=== PATIENT | female | born 1980 | race Caucasian/White ===

== ENCOUNTER 2017-02-18 06:00 | Inpatient (IN) ==
[2017-02-18] MEDS ORDERED: METHYLERGONOVINE 0.2 MG/ML INJECTION IM PRN (06:11)
[2017-02-18] MEDS ORDERED: CARBOPROST 250 MCG/ML INJECTION IM PRN (06:11)
[2017-02-18] MEDS ORDERED: ACETAMINOPHEN 500 MG TABLET PO PRN ×2 (06:11→16:24)
[2017-02-18] MEDS ORDERED: MAG-AL + SIM ORAL LIQUID 30ml PO PRN ×2 (06:11→16:24)
[2017-02-18] MEDS ORDERED: LIDOCAINE 1% (10mg/ml) 2mL INJ PF SDV ID PRN (06:11)
[2017-02-18] MEDS ORDERED: CALCIUM CARBONATE Chewable 500mg TABLET PO PRN ×2 (06:11→16:24)
--- OUTSIDE RECORDS SUMMARY | 2017-02-18 06:15 | External Medical Summary | Continuity of Care Document ---
:1980 Author Organization [facility] Address [address] [place], [place] [id number] Phone Care Team Providers Name Role Phone Martina Cartagena MD Unavailable Unavailable Allergies, Adverse Reactions, Alerts Substance Reaction Severity Status No Known Drug Allergies Unknown Active Medications Medication Instructions Dosage Effective Dates Status Comments (start - stop) FLUTICASONE spray 1 spray by - Active PROPIONATE (unknown intranasal route strength) every day in each nostril EYE ALLERGY RELIEF - Active (unknown strength) (unknown daily - Active strength) Zyrtec 10 mg capsule - Active Tylenol Extra take 2 tablet by oral 1000 MG - Active Strength 500 mg route every 6 hours tablet as needed CRANBERRY (unknown - Active strength) Fiber Choice - Active (inulin-sorbitol) 1.5 gram chewable tablet Problems Condition Effective Dates (start - stop) Clinical Status Encntr for f/u exam aft trtmt for cond - otesequiel holt Missed AB - Secondary amenorrhea - Supervision of elderly multigravida, - third trimester Encounter for suprvsn of normal - , third trimester 34 weeks gestation of - Supervision of elderly multigravida, - first trimester Spotting complicating , first - trimester 8 weeks gestation of - Supervision of elderly multigravida, - second trimester 19 weeks gestation of - Supervision of elderly multigravida, - third trimester Maternal care for excess growth, - third trimester, unsp 32 weeks gestation of - Secondary amenorrhea Encntr for nurse obgyn exam (general) - (routine) w abnormal findings Encounter for test, result - positive Irregular Menses demise before 22 weeks with retention of michelle demise before 22 weeks with retention of michelle demise before 22 weeks with retention of michelle Spotting Complicating , Antepartum 8 weeks gestation of - Supervision of elderly multigravida, - first trimester 12 weeks gestation of - High Risk Preg, Elderly Multigravida Less than 8 weeks gestation of - Supervision of elderly multigravida, - second trimester Encounter for suprvsn of normal - , second trimester 27 weeks gestation of - Supervision of elderly multigravida, - second trimester 16 weeks gestation of - Spotting complicating , - second trimester Supervision of elderly multigravida, - second trimester Encounter for suprvsn of normal - , second trimester 23 weeks gestation of - Supervision of elderly multigravida, - second trimester Encounter for suprvsn of normal - , second trimester Supervision of elderly multigravida, - third trimester 36 weeks gestation of - Encounter for suprvsn of normal - , third trimester Supervision of elderly multigravida, - third trimester Encounter for suprvsn of normal - , third trimester 30 weeks gestation of - Supervision of elderly multigravida, - third trimester Maternal care for excess growth, - third trimester, unsp 34 weeks gestation of - Threatened Threatened - Threatened Amenorrhea, Secondary - Active Irregular Menses - Active Active Active Procedures Procedure Date OB Visit No Charge Immuniz admnin, 1 vac, sngl/combo 19 Yrs + TDAP VACCINE >7 IM Results Test Name Date and Time Measure Units Reference Range Abnormal Flag Comments Unknown Advance Directives Directive Yes / No Effective Date File Name Unknown Encounters Encounter Practice Location Reason(s) Diagnoses Date Provider Care Team Description For Visit Members Last [place] Supervision of Jan- Thomas Referring In Womens elderly - Ingrid. Provider: Svetlana MONIQUE multigravicelia, 7 [address]grid [address] third [email or web address] Medical Thomas L, 1522, weeks gestation Center [address] [place] [address], of Giancarlo Stanton, pregnancyEncounte 120, Center [id number], [facility], [place] normal , [place]idel CERV[place], tel:[phone] third trimester [phone] [place], , [place]. [id number]. tel: tel:[phone] Last [place] Supervision of Jan- Thomas Referring In Womens elderly - Ingrid. Provider: miguel Chewgravicelia, 7 700 Ingrid [address] third Medical Thomas L, 1522, trimesterEncounte Center [address] [place] [address], r for suprvsn of Giancarlo Stanton, normal , 120, Center [id number], third [id number] Fidel [facility] 120, [place] weeks gestation Fidel CERVANTES, tel:[phone] of [id number] [facility] , [place]. [id number]. tel: tel:[phone] Last [place] Supervision of Jan- Thomas Referring In Womens Ultrasound elderly - Ingrid. Provider: Svetlana MONIQUE multigravida, 7 700 Ingrid [address] third Medical Thomas L, 1522, trimesterMaternal Center [address] [place] [address], care for excess Giancarlo Stanton, growth, 120, Center [id number], third trimester, Fidel [facility] 120, [place] unsp34 weeks Fidel CERVANTES, tel:[phone] gestation of [phone] [place], , [place]. [id number]. tel: tel:[phone] Last [place] Supervision of Thomas Referring In Womens elderly 0-201 Ingrid. Provider: Health KAYDEN, multigravida, 7 700 Ingrid PO [address] third Medical Thomas L, 1522, trimesterMaternal Center [address] [place], care for excess Giancarlo Stanton, growth, 120, Center [id number], third trimester, [place] Giancarlo 120, [place] unsp32 weeks Fidel CERVANTES, tel:[phone] gestation of [phone] [place], , [place]. [id number]. tel: tel:[phone] Last [place] Supervision of Thomas Referring In Womens elderly 6-201 Ingrid. Provider: Svetlana MONIQUE multigravida, 7 700 Ingrid PO Box third Medical Thomas L, 1522, [facility] [address] [place], r for suprvsn of Giancarlo Stanton, normal , 120, Center [id number], third [id number] [place] Giancarlo 120, [place] weeks gestation Fidel CERVANTES, tel:[phone] of [phone] [place], , [place]. [id number]. tel: tel:[phone] Last [place] Supervision of Thomas Referring In Womens elderly 6-201 Ingrid. Provider: miguel Chewgravida, 7 700 Ingrid PO Box second Medical Thomas L, 1522, [facility] [address] [place], r for suprvsn of Giancarlo Stanton, normal , 120, Center [id number], second F[place] Giancarlo 120, [place] [id number] weeks Fidel CERVANTES, tel:+[phone] gestation of [phone] [place], , [place]. [id number]. tel: tel:[phone] Last [place] Supervision of Thomas Referring In Womens elderly 8-201 Ingrid. Provider: Svetlana MONIQUE multigravida, 7 700 Ingrid PO Box second Medical Thomas L, 1522, [facility] Center [address] [place], [place] [address], r for suprvsn of Giancarlo Stanton, normal , 120, Center [id number], second [place] Giancarlo 120, [place] [id number] weeks Fidel CERVANTES, tel:+[phone] gestation of [phone] [place], , [place]. [id number]. tel: tel:[phone] Last [place] Supervision of September- Thomas Referring In Womens elderly 1-201 Ingrid. Provider: Svetlana MONIQUE multigravida, 7 700 Ingrid PO Box second Medical Thomas L, 1522, [id number] weeks Center [address] [place] [address], gestation of Giancarlo Stanton, 120, Center [id number], Fidel, Giancarlo 120, [place] Fidel CERV[place], tel:[phone] [place], , [place]. [id number]. tel: tel:[phone] Last [place] Supervision of Thomas Referring In Womens Ultrasound elderly 1-201 Ingrid. Provider: miguel Chewgravida, 7 Ingrid PO Box second Medical Thomas L, 1522, trimesterEncounte Center [address] [place] [address], r for suprvsn of Giancarlo Stanton, normal , 120, Center [id number], second trimester Fidel Giancarlo 120, [place] Fidel CERVANTES, tel:[phone] [place], , [place]. [id number]. tel: tel:[phone] Last [place] Supervision of Thomas Referring In Womens elderly 0-201 Ingrid. Provider: Svetlana MONIQUE multigravida, 7 700 Ingrid PO Box second Medical Thomas L, 1522, [id number] weeks Center [address] [place] [address], gestation of Giancarlo Stanton, pregnancySpotting 120, Center [id number], complicating [place], Giancarlo 120, [place] , second Fidel CERVANTES, tel:[phone] trimester [phone] [place], , [place]. [id number]. tel: tel:[phone] Last [place] Supervision of Aug- Thomas Referring In Womens elderly 2-201 Ingrid. Provider: Health [place], multigravida, 7 700 Ingrid PO Box first [id number] Medical Thomas L, 1522, weeks gestation Center [facility] [place], of , [facility], 120, Center [id number], [facility], [place] Fidel CERV[place], tel:+ [phone] [place], , [place]. [id number]. tel: tel:+ [phone] Last [place] Supervision of Jul- Thomas Referring In Womens elderly 5-201 Ingrid. Provider: Svetlana MONIQUE, multigravida, 7 700 Ingrid PO Box first Medical Thomas L, 1522, trimesterSpotting Center [facility], complicating , [facility], , first 120, [place] , trimester8 weeks [facility] 120, [place] gestation of [place] CERVANTES, tel:[phone] [place], , [place]. [id number]. tel: tel: [phone] Last [place] Threatened Fe-2 Thomas Referring In Womens - Ingrid. Provider: Svetlana MONIQUE, 7 700 Ingrid PO Box Medical Thomas L, 1522, Center [facility] [address] [place], [facility], 120, [place] [id number], [facility], [place] CERV[place], tel:+ [phone] [place], , [place]. [id number]. tel: tel: [phone] Last [place] Irregular Menses Feb-2 Thomas In Womens - Ingrid. Svetlana MONIQUE, 7 700 PO Box Medical 15[address], [place] [address] [place], [facility], 120, [id number], [place], [place], tel:[phone] , [place]. tel: [phone] Last [place] Encntr for f/u Nov-0 Thomas Referring In Womens exam aft trtmt - Ingrid. Provider: Svetlana MONIQUE, for cond oth than 6 700 Ingrid PO Box malig neoplm Medical Thomas L, 1522, Center [address], [place] Medical [place], 120, Center , [place] [facility] 120, [place] F[place], tel:[phone] [place], , [place]. [id number]. tel: tel: [phone] Associates [facility] demise Sep-2 Thomas In Womens before 22 weeks 0-201 Ingrid. Svetlana MONIQUE, with retention of 6 700 PO Box michelle Medical 15[address], [address] [place], [facility] [place], 120, [id number], [place], [place], tel:[phone] , [place]. tel: [phone] [facility] demise Sep-1 Cardo[place] Referring In Womens before 22 weeks 3-201 Ju. Provider: Svetlana MONIQUE, with retention of 6 700 Ingrid PO Box deaMissed Medical Thomas L, 1522, Center [facility] [address] [place], [facility], 120, [place] [id number], [place] [facility] 120, [place] F[place], tel:[phone] [place], , [place]. [id number]. tel: tel:+ [phone] [facility] demise Sep-0 [place] Referring In Womens before 22 weeks 6-201 Apple. Provider: Svetlana MONIQUE, with retention of 6 700 Ingrid PO Box deaSpotting Medical Thomas L, 1522, Complicating Center [facility], , , [facility], Antepartum8 weeks 120, [place] , gestation of [facility] 120, [place] F[place]ERV[place], tel:[phone] [place], , [place]. [id number]. tel: tel: [phone] [facility] High Risk Preg, Aug-2 Thomas Referring In Womens Elderly 2-201 Ingrid. Provider: Svetlana MONIQUE, MultigravidaLess 6 700 Ingrid PO Box than 8 weeks Medical Thomas L, 1522, gestation of Center [facility] [place], , [facility] [place], 120, [place] , [place] [facility] 120, [place] F[place], tel:[phone] [place], , [place]. [id number]. tel: tel: [phone] Last [place] Threatened Aug-2 Thomas Referring In Womens Ultrasound 2-201 Ingrid. Provider: Svetlana MONIQUE, 6 700 Ingrid PO Box Medical Thomas L, 1522, Center [address] [place], [facility] [place], 120, Center [id number], [place] [facility] 120, [place] F[place], tel:[phone] [place], , [place]. [id number]. tel: tel: [phone] Last [place] Threatened Aug-2 Thomas In Womens 2-201 Ingrid. Svetlana MONIQUE, 6 700 PO Box Medical 1522, [address] [place], [facility] [place], 120, [id number], [place], [place], tel:[phone] , [place]. tel: [phone] Last [place] Secondary Aug-1 Thomas Referring In Womens amenorrheaSeconda 7-201 Ingrid. Provider: Svetlana MONIQUE, ry 6 700 Ingrid PO Box amenorrheaEncntr Medical Thomas L, 1522, for nurse obgyn exam Center [facility], (general) , [facility], (routine) w 120, Center [id number], abnormal [place] [facility] 120, [place] findingsEncounter [place] CERVANTES, tel: for [phone] [place], test, result , [place]. [id number]. positive tel: tel: [phone] Last [place] Apr-0 Thomas Referring In Womens 1-201 Ingrid. Provider: Svetlana MONIQUE, 5 700 Ingrid PO Box Medical Thomas L, 1522, Center [facility] [address] [place], [facility] [place], 120, Center [id number], [place] [facility] 120, [place] F[place], tel:[phone] [place], , [place]. [id number]. tel: tel: [phone] Last [place] Dec-1 Thomas Referring In Womens 5-201 Ingrid. Provider: Svetlana MONIQUE, 4 700 Ingrid PO Box Medical Thomas L, 1522, Center [address] [place], [facility] Medical [place], 120, Center [id number], [place], [facility] 120, [place]ERV[place], tel:[phone] [place], , [place]. [id number]. tel: tel:+[phone] [facility] Feb- Thomas Referring In Womens 3-201 Ingrid. Provider: Health KAYDEN, 2 700 Ingrid PO Box Medical Thomas L, 1522, Center [address] [place], [facility] Medical [place], 120, Center [id number], [place], [facility] 120, [place] F[place] CERV[place], tel:[phone] [place], , [place]. [id number]. tel: tel:[phone] [facility] May- Jessica In Womens 0-201 Jana. Health KAYDEN, 2 700 PO Box Medical 15[address], [address] [place], [facility] [place], 120, [id number], [place], [place], tel:[phone] , [place]. tel: [phone] Family History Family Member Diagnosis Age At Onset Father Hypertension Paternal Grandmother Diabetes mellitus Maternal Grandfather Hypertension Maternal Grandmother Hypertension Paternal Grandmother Hypertension Paternal Grandfather Hypertension Mother Hypertension Immunizations Vaccine Date Status Comments Tdap completed Source: New Immunization Record Tdap completed Source: New Immunization Record Influenza, injectable, completed Source: New Immunization Record quadrivalent, preservative free, 3 yrs or older Payers Payer name Insurance type Covered alliance party ID Authorization(s) [facility] Medicaid [id number] [facility] [place] [id number] [facility] [id number] [facility] Medicaid [id number] [facility] [place] [id number] [facility] [place] [id number] Social History Type Description Quantity Date Captured Alcohol Use Details No Caffeine Use Details Unknown Tobacco Use Status Unknown Smoking Status Never smoker Vital Signs Date / Height Weight BMI Pulse Blood Temperature Respiratory Body Head BMI Time: Rate Pressure Rate Surface Circumference percentile Area Unknown Chief Complaint And Reason For Visit Unknown Chief Complaint And Reason For Visit Reason For Referral Reason For Referral Unknown Plan Of Care Date Type Action Status Appointment Jon Son BOOKED Future Order: Radiology Order Ultrasound OB Follow-up ([id number]) Ordered Date Type Problem Goal Intervention Status Start Date Unknown. History Of Present Illness Encounter Date Complaint History Of Present Illness This patient has no known history of present illness Functional Status Encounter Date Functional Assessment Cognitive Assessment Unknown Medications Administered Medication Instructions Dosage Effective Dates (start - stop) Status Comments Drug Treatment Unknown Instructions Date Instruction Additional Information HIV and other routine tests risk factors identified by history anticipated course of care nutrition and weight gain counseling, special diet toxoplasmosis precautions (cats / raw meat) sexual activity exercise indications for ultrasound influenza vaccine environmental / work hazards travel tobacco (ask, advise, assess, assist and arrange) alcohol illicit / recreational drugs use of any medications (including supplements, vitamins, herbs, OTC drugs) smoking counseling domestic violence seat belt use childbirth classes / hospital facilities hospital registration genetic testing new ob handbook Zika virus assessment & precautions Giving encouragement to exercise Related to Body mass index 30.0-30.9
--- OUTSIDE RECORDS SUMMARY | 2017-02-18 06:15 | External Medical Summary | Continuity of Care Document ---
:1980 Author Organization [email or web address] Address [address] [place], [place] [id number] Phone Care Team Providers Name Role Phone [...] (unknown strength) (unknown daily - Active strength) Tylenol Extra take 2 tablet by oral 1000 MG - Active Strength 500 mg route every 6 hours tablet as needed CRANBERRY (unknown - Active strength) Fiber Choice - Active (inulin-sorbitol) 1.5 gram chewable tablet Zyrtec 10 mg capsule - Active Problems Condition Effective Dates (start - stop) Clinical Status Encntr for f/u exam aft trtmt for cond - otesequiel holt Missed AB - Secondary amenorrhea - Supervision of elderly multigravida, - third trimester Maternal care for excess growth, - third trimester, unsp 34 weeks gestation of - Supervision of elderly multigravida, - first trimester Spotting complicating , first - trimester 8 weeks gestation of - Supervision of elderly multigravida, - second trimester 19 weeks gestation of - Supervision of elderly multigravida, - third trimester Maternal care for excess growth, - third trimester, unsp 32 weeks gestation of - Supervision of elderly multigravida, - third trimester 34 weeks gestation of - Encounter for suprvsn of normal - , third trimester Secondary amenorrhea 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) - (routine) w abnormal findings [...] third trimester 30 weeks gestation of - Threatened Threatened - Threatened Amenorrhea, Secondary - Active Irregular Menses - Active Active Active Procedures Procedure Date Ultrasnd preg uterus, flwup/repeat Results Test Name Date and Time Measure Units Reference Range Abnormal Flag Comments Unknown Advance Directives Directive Yes / No Effective Date File Name Unknown Encounters Encounter Practice Location Reason(s) Diagnoses Date Provider Care Team Description For Visit Members Last [place] Supervision of Jan- Thomas Referring In Womens elderly 7-201 Ingrid. Provider: Svetlana MONIQUE multigravida, 7 700 [address] third [id number] Medical Thomas L, 1522, weeks gestation Center [address] [place] [address], of Giancarlo Stanton, pregnancyEncounte 120, Center [id number], r for suprn of [place] [address], normal , Fidel CERVANTES, tel:[phone] third trimester [phone] [place], , [place]. [id number]. tel: tel:[phone] Last [place] Supervision of Thomas Referring In Womens elderly 3-201 Ingrid. Provider: miguel Chewgravida, 7 700 Ingrid [address] third Medical Thomas L, 1522, weeks gestation Center [address] [place] [address], [facility], [facility] 120, Center [id number], r for suprsharmaine of [facility] 120, [place] normal , Fidel CERVANTES, tel:[phone] third trimester [phone] [place], , [place]. [id number]. tel: tel:[phone] Last [place] Supervision of Thomas Referring In Womens Ultrasound elderly 3-201 Ingrid. Provider: Svetlana MONIQUE multigravida, 7 700 Ingrid [address] Box third Medical Thomas L, 1522, trimesterMaternal Center [address] [place] [address], care for excess Giancarlo Stanton, growth, 120, Center [id number], third trimester, Fidel [facility] 120, [place] unsp34 weeks Fidel CERVANTES, tel:[phone] gestation of [phone] [place], , [place]. [id number]. tel: tel:[phone] Last [place] Supervision of Thomas Referring In Womens elderly 0-201 Ingrid. Provider: Health AKYDEN, multigravida, 7 700 Ingrid [address] Box third Medical Thomas L, 1522, trimesterMaternal Center [address] [place], care for excess Giancarlo Stanton, growth, 120, Center [id number], third trimester, [place], Giancarlo 120, [place] unsp32 weeks Fidel CERVANTES, tel:[phone] gestation of [phone] [place], , [place]. [id number]. tel: tel:[phone] Last [place] Supervision of Thomas Referring In Womens elderly 6-201 Ingrid. Provider: Svetlana MONIQUE multigravida, 7 700 Ingrid PO Box third Medical Thomas L, 1522, [facility] [address] [place], r for suprvsn of Giancarlo Stanton, normal , 120, Center [id number], third [id number] [place], Giancarlo 120, [place] weeks gestation Fidel CERVANTES, tel:+ of [phone] [place], , [place]. [id number]. tel: tel:[phone] Last [place] Supervision of Thomas Referring In Womens elderly 6-201 Ingrid. Provider: Svetlana MONIQUE multigravida, 7 700 Ingrid PO Box second Medical Thomas L, 1522, trimesterEncounte Center [address] [place], r for suprvsn of Giancarlo Stanton, normal , 120, Center [id number], second [place], Giancarlo 120, [place] [id number] weeks Fidel CERVANTES, tel:+ gestation of [phone] [place], , [place]. [id number]. tel: tel:[phone] Last [place] Supervision of Thomas Referring In Womens elderly 8-201 Ingrid. Provider: Svetlana MONIQUE multigravida, 7 700 Ingrid PO Box second Medical Thomas L, 1522, trimesterEncounte Center [address] [place], r for suprvsn of Giancarlo Stanton, normal , 120, Center [id number], second [place], Giancarlo 120, [place] [id number] weeks Fidel CERVANTES, tel:[phone] gestation of [id number] [place], , [place]. [id number]. tel: tel:[phone] Last [place] Supervision of Thomas Referring In Womens elderly 1-201 Ingrid. Provider: Svetlana MONIQUE, multigravida, 7 700 Ingrid PO Box second Medical Thomas L, 1522, [id number] weeks Center [address] [place] [address], gestation of Giancarlo Stanton, 120, Center [id number], Fidel, [facility] 120, [place] Fidel CERVANTES, tel:[phone] [place], , [place]. [id number]. tel: tel:[phone] Last [place] Supervision of Thomas Referring In Womens Ultrasound elderly 1-201 Ingrid. Provider: miguel Chewgravida, 7 700 Ingrid PO Box second Medical Thomas L, 1522, trimesterEncounte Center [address] [place] [address], r for suprvsn of Giancarlo Stanton, normal , 120, Center [id number], second trimester [place] [facility] 120, [place] Fidel CERVANTES, tel:+ [phone] [place], , [place]. [id number]. tel: tel:[phone] Last [place] Supervision of Thomas Referring In Womens elderly 0-201 Ingrid. Provider: Svetlana MONIQUE, multigravida, 7 700 Ingrid PO Box second Medical Thomas L, 1522, [id number] weeks Center [address] [place] [address], gestation of Giancarlo Stanton, pregnancySpotting 120, Center [id number], complicating [place], [facility] 120, [place] , second Fidel CERVANTES, tel:+ [phone] [place], , [place]. [id number]. tel: tel:[phone] Last [place] Supervision of Thomas Referring In Womens elderly 2-201 Ingrid. Provider: Svetlana MONIQUE multigravida, 7 700 Ingrid PO Box first [email or web address] Medical Thomas L, 1522, weeks gestation Center [address] [place] [address], of Giancarlo Stanton, 120, Center [id number], Fidel, [facility] 120, [place] Fidel CERVANTES, tel:[phone] [place], , [place]. [id number]. tel: tel:[phone] Last [place] Supervision of Jul- Thomas Referring In Womens elderly 5-201 Ingrid. Provider: Svetlana MONIQUE, multigravida, 7 700 Ingrid PO Box first Medical Thomas L, 1522, trimesterSpotting Center [address] [place], [place] [address]ta, complicating , [facility], , first 120, Center [id number], trimester8 weeks [facility] 120, gestation of HELEN, [place], tel:+ [phone] [place], , [place]. [id number]. tel: tel: [phone] Last [place] Threatened Feb-2 Thomas Referring In Womens - Ingrid. Provider: Svetlana MONIQUE, 7 700 Ingrid PO Box Medical Thomas L, 1522, Center [facility] [address], [facility], 120, [place] [id number], [facility] 120, Fidel CERVANTES, tel:[phone] [place], , [place]. [id number]. tel: tel:+ [phone] Last [place] Irregular Menses Feb-2 Thomas In Womens -201 Ingrid. Svetlana MONIQUE, 7 700 PO Box Medical [address], [place] [address], [facility], 120, [id number], HELEN, tel:[phone] , [place]. tel: [phone] Last [place] Encntr for f/u Nov-0 Thomas Referring In Womens exam aft trtmt -201 Ingrid. Provider: Svetlana MONIQUE, for cond oth than 6 700 Ingrid PO Box malig neoplm Medical Thomas L, 1522, Center [facility] [address], [facility], 120, [place] [id number], [place], [facility] 120, [place] Fidel CERVANTES, tel:[phone] [place], , [place]. [id number]. tel: tel: [phone] Associates [place] demise Sep-2 Thomas In Womens before 22 weeks 0-201 Ingrid. Health [place], with retention of 6 700 PO Box michelle Medical [address], [place] [address], [facility] [place], 120, [id number], [place], [place], tel:[phone] , [place]. tel: [phone] Associates [place] demise Sep-1 [place] Referring In Womens before 22 weeks 3-201 Ju. Provider: Svetlana MONIQUE, with retention of 6 700 Ingrid PO Box deaMissed Moon Oquendo, 1522, Center [facility] [address], [facility], 120, [place] [id number], [facility] 120, Fidel CERVANTES, tel:[phone] [place], , [place]. [id number]. tel: tel: [phone] [facility] demise Sep-0 [place] Referring In Womens before 22 weeks 6-201 Apple. Provider: Svetlana MONIQUE, with retention of 6 700 Ingrid PO Box deaSpotting Medical Thomas Oquendo, 1522, Complicating Center [facility] [address] , , [facility], Antepartum8 weeks 120, [place] , gestation of [facility] 120, [place] Fidel CERVANTES, tel:[phone] [place], , [place]. [id number]. tel: tel: [phone] [facility] High Risk Preg, Aug-2 Thomas Referring In Womens Elderly 2-201 Ingrid. Provider: Svetlana MONIQUE, MultigravidaLess 6 700 Ingrid PO Box than 8 weeks Medical Thomas Oquendo, 1522, gestation of [place] [address] [address] , [facility], 120, [place] [id number], [facility] 120, [place] CERV[place], tel:[phone] [place], , [place]. [id number]. tel: tel: [phone] Last [place] Threatened Aug-2 Thomas Referring In Womens Ultrasound 2-201 Ingrid. Provider: Svetlana MONIQUE, 6 700 Ingrid PO Box Medical Thomas L, 1522, Center [facility] [address], [facility] [place], 120, Center [id number], F[place] [facility] 120, [place] Fidel CERVANTES, tel:+ [phone] [place], , [place]. [id number]. tel: tel:[phone] Last [place] Threatened Aug-2 Thomas In Womens 2-201 Ingrid. Svetlana MONIQUE, 6 700 PO Box Medical 1522, Center [address], [facility] [place], 120, [id number], [place], [place], tel:[phone] , [place]. tel: [phone] Last [place] Secondary Aug-1 Thomas Referring In Womens amenorrheaSeconda 7-201 Ingrid. 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 [id number]. positive tel: tel:[phone] Last [place] Apr-0 Thomas Referring In Womens 1-201 Ingrid. Provider: Svetlana MONIQUE, 5 700 Ingrid PO Box Medical Thomas L, 1522, Center [facility] [address], [facility] [place], 120, Center [id number], [place], [facility] 120, [place] Fidel CERVANTES, tel:[phone] [place], , [place]. [id number]. tel: tel:[phone] Last [place] Dec- Thomas Referring In Womens 5-201 Ingrid. Provider: Svetlana MONIQUE, 4 700 Ingrid PO Box Medical Thomas L, 1522, Center [facility] [address], [facility] [place], 120, Center [id number], [place], [facility] 120, [place], [place], tel: [phone] [place], , [place]. [id number]. tel: tel:[phone] [facility] Feb- Thomas Referring In Womens 3-201 Ingrid. Provider: Health [place], 2 700 Ingrid PO Box Medical Thomas L, 1522, Center [address], [facility] [place], 120, [place] [id number], [place], [facility] 120, [place], [place], tel: [phone] [place], , [place]. [id number]. tel: tel:[phone] [facility] Jessica In Womens 0-201 Jana. Health [place], 2 700 PO Box Medical [address], [place] [address], [facility] [place], 120, [id number], [place], HELEN, tel: [phone] , [place]. tel: [phone] Family History Family Member Diagnosis Age At [...] older Payers Payer name Insurance type Covered democrat ID Authorization(s) [employer] [place] [employer] - Medicaid [place] [id number] [facility] [place] [id number] [place] [facility] [id number] [facility] [place] [id number] [employer] [place] [employer] - Medicaid [place] [id number] [facility] [place] [id number] Social History Type Description Quantity Date Captured Unknown Vital Signs Date / Height Weight BMI Pulse Blood Temperature Respiratory Body Head BMI Time: Rate Pressure Rate Surface Circumference percentile Area Unknown Chief Complaint And Reason For Visit Unknown Chief Complaint And Reason For Visit Reason For Referral Reason For Referral Unknown Plan Of Care Date Type Action Status Appointment Jon Son BOOKED Future Order: Radiology Order Ultrasound OB Follow-up ([id number]) Ordered Date Type Problem Goal Intervention Status [...]
--- OUTSIDE RECORDS SUMMARY | 2017-02-18 06:15 | External Medical Summary | Continuity of Care Document ---
:1980 Author Organization [facility] Address [address] [place], [place] [id number] Phone Care Team Providers Name Role Phone Martina Cartagena MD Unavailable Unavailable Allergies, Adverse Reactions, Alerts Substance Reaction Severity Status No Known Drug Allergies Unknown Active Medications Medication Instructions Dosage Effective Dates Status Comments (start - stop) (unknown daily - Active strength) Alevazol 1 % topical - Active ointment Tylenol Extra take 2 tablet by oral 1000 MG - Active Strength 500 mg route every 6 hours tablet as needed CRANBERRY (unknown - Active strength) Fiber Choice - Active (inulin-sorbitol) 1.5 gram chewable tablet Problems Condition Effective Dates (start - stop) Clinical Status Encntr for f/u exam aft trtmt for cond - oth jassi holt Missed AB - Secondary amenorrhea - Supervision of elderly multigravida, - second trimester Encounter for suprvsn of normal - , second trimester 27 weeks gestation of - Supervision of elderly multigravida, - first trimester Spotting complicating , first - trimester 8 weeks gestation of - Supervision of elderly multigravida, - second trimester 19 weeks gestation of - Secondary amenorrhea 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) - (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) w 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 findings [...] Supervision of elderly multigravida, - second trimester 23 weeks gestation of - Encounter for suprvsn [...] Procedures Procedure Date OB Visit No Charge Results Test Name Date and Time Measure Units Reference Range Abnormal Flag Comments Panel Description: Glucose [Mass/volume] in Serum or Plasma --1 hour post 50 g glucose PO GLUCOSE, GESTATIONAL 90 mg/dL <140 N Test performed at [facility] SCREEN (50G)-140 11:10:00 DI[facility]NO[facility] [id number] [place] [address]Bopkltff: LUIS LANIER DO,MPH Panel Description: HEMOGLOBIN + HEMATOCRIT HEMOGLOBIN 11:10:00 12.0 g/dL 11.7-15.5 N HEMATOCRIT 11:10:00 36.2 % 35.0-45.0 N Test performed at [facility] [id number] [place] [address]Tphybsih: LUIS LANIER DO,MPH Advance Directives Directive Yes / No Effective Date File Name Unknown Encounters Encounter Practice Location Reason(s) Diagnoses Date Provider Care Team Description For Visit Members Last [place] Supervision of Thomas Referring In Womens elderly Ingrid. Provider: miguel Chewgravicelia, 7 700 Ingrid [address] third Medical Thomas L, 1522, trimesterEncounte Center 700 [place], r for suprvsn of Giancarlo Stanton, normal , 120, Center [id number], third [id number] Fidel [facility] 120, [place] weeks gestation Fidel CERVANTES, tel:[phone] [place], , [place]. [id number]. tel: tel:[phone] Last [place] Supervision of Thomas Referring In Womens elderly Ingrid. Provider: librado Chewavicelia, 7 700 Ingrid PO Box second Medical [place] L, 1522, trimesterEncounte Center [address] [place], [place] [address], r for suprvsn of Giancarlo Stanton, normal , 120, Center [id number], second Fidel [facility] 120, [place] [id number] weeks Fidel CERVANTES, tel:[phone] gestation of [phone] [place], , [place]. [id number]. tel: tel:[phone] Last [place] Supervision of Thomas Referring In Womens elderly Ingrid. Provider: librado Chewavicelia, 7 700 Ingrid PO Box second Medical Thomas L, 1522, [id number] weeks Center [facility] [place], gestation of Giancarlo Stanton, pregnancyEncounte 120, Center [id number], r for suprLenore [facility] 120, [place] normal , Fidel CERVANTES, tel:[phone] second trimester [phone] [place], , [place]. [id number]. tel: tel:[phone] Last [place] Supervision of Thomas Referring In Womens elderly Ingrid. Provider: miguel Chewgravicelia, 7 700 Ingrid PO Box second Medical [place] L, 1522, [id number] weeks Center [address] [place], [place] [address], gestation of Giancarlo Stanton, 120, Center [id number], Fidel, Giancarlo 120, [place] Fidel CERV[place], tel:[phone] [place], , [place]. [id number]. tel: tel:[phone] Last [place] Supervision of September-3 Thomas Referring In Womens Ultrasound elderly 1-201 Ingrid. Provider: Svetlana MOINQUE multigravida, 7 700 Ingrid PO Box second Medical [place] L, 1522, trimesterEncounte Center [address] [place] [address], r for suprvsn of Giancarlo Stanton, normal , 120, Center [id number], second trimester [place], Giancarlo 120, [place] Fidel CERVANTES, tel:[phone] [place], , [place]. [id number]. tel: tel:[phone] Last [place] Supervision of September- Thomas Referring In Womens elderly 0-201 Ingrid. Provider: Svetlana MONIQUE multigravicelia, 7 700 Ingrid PO Box second Medical [place] L, 1522, [id number] weeks Center [address] [place] [address], gestation of Dr [facility] Moon CERVANTES, pregnancySpotting 120, Center [id number], complicating Fidel, [facility] 120, [place] , second Fidel CERVANTES, tel:[phone] [place], , [place]. [id number]. tel: tel:[phone] Last [place] Supervision of Aug- Thomas Referring In Womens elderly 2-201 Ingrid. Provider: Svetlana MONIQUE multigravida, 7 700 Ingrid PO Box first [email or web address] Medical Thomas L, 1522, weeks gestation Center [address] [place] [address], of Giancarlo Stanton, 120, Center [id number], Fidel, [facility] 120, [place] Fidel CERVANTES, tel:[phone] [place], , [place]. [id number]. tel: tel:[phone] Last [place] Supervision of Jul- Thomas Referring In Womens elderly 5-201 Ingrid. Provider: Svetlana MONIQUE multigravida, 7 700 Ingrid PO Box first Medical Thomas L, 1522, trimesterSpotting Center [address] [place] [address], complicating , [facility], , first 120, [place] , trimester8 weeks [facility] 120, [place] gestation of HELEN Fidel, tel:[phone] [place], , [place]. [id number]. tel: tel: [phone] Last [place] Threatened Feb-2 Thomas Referring In Womens 4-201 Ingrid. Provider: Health KAYDEN, 7 700 Ingrid PO Box Medical [facility] L, 1522, Center [facility] Dr Pri[address], [facility], 120, [place] [id number], [facility], Fidel CERVANTES, tel:[phone] [place], , [place]. [id number]. tel: tel: [phone] Last [place] Irregular Menses Feb-2 Thomas In Womens 4-201 Ingrid. Health KAYDEN, 7 700 PO [facility] 1522, [place] Dr Pri[address]ank, [facility], 120, , [place], [place], tel:[phone] , [place]. tel: [phone] Last [place] Encntr for f/u Nov-0 Thomas Referring In Womens exam aft trtmt 1-201 Ingrid. Provider: Health KAYDEN, for cond oth than 6 700 Ingrid PO Box [facility] L, 1522, Center [facility] Dr Priyank, [facility], 120, [place] [id number], Fidel [facility] 120, [place] Fidel CERVANTES, tel:[phone] [place], , [place]. [id number]. tel: tel: [phone] Associates Fidel demise Sep-2 Thomas In Womens before 22 weeks 0-201 Ingrid. Health [place], with retention of 6 700 PO Box [facility] Medical 1522, [place] [address] Priyank, [facility] [place], 120, , [place], [place], tel:[phone] , [place]. tel:[phone] Associates F[facility] demise Sep-1 [place] Referring In Womens before 22 weeks 3-201 Ju. Provider: Svetlana MONIQUE, with retention of 6 700 Ingrid PO Box deaMissed AB Moon Guzman L, 1522, Center 700 [place], , [facility] Medical [place], 120, Center [id number], [place], [facility] 120, [place] Fidel CERV[place]ES, tel:[phone] [place], , [place]. [id number]. tel: tel:[phone] Associates [facility] demise Sep-0 [place] Referring In Womens before 22 weeks 6-201 Apple. Provider: Svetlana MONIQUE, with retention of 6 700 Ingrid PO Box deaSpotting Medical Thomas L, 1522, Complicating Center 700 [place], , , [facility], Antepartum8 weeks 120, [place] , gestation of [place], [facility] 120, [place] Fidel CERVANTES, tel:[phone] [place], , [place]. [id number]. tel: tel: [phone] Associates [facility] High Risk Preg, Aug-2 Thomas Referring In Womens Elderly 2-201 Ingrid. Provider: Svetlana MONIQUE, MultigravidaLess 6 700 Ingrid PO Box than 8 weeks Medical Thoams L, 1522, gestation of Center 700 [place], , [facility] [place], 120, Center [id number], Fidel, [facility] 120, [place] Fidel CERV[place], tel:[phone] [place], , [place]. [id number]. tel: tel: [phone] Associates [facility] Threatened Aug-2 Thomas Referring In Womens Ultrasound 2-201 Ingrid. Provider: Svetlana MONIQUE, 6 700 Ingrid PO Box Medical Thomas L, 1522, Center 700 [place], , [facility] Medical [place], 120, Center [id number], Fidel, [facility] 120, [place] Fidel CERV[place], tel:[phone] [place], , [place]. [id number]. tel: tel: [phone] Last [place] Threatened Aug-2 Thomas In Womens 2-201 Ingrid. Svetlana MONIQUE, 6 700 PO Box Medical 1522, Center Dr Priy[place], [facility] [place], 120, [id number], [place], [place], tel: [phone] , [place]. tel: [phone] Last [place] Secondary Dec- Thomas Referring In Womens amenorrheaSeconda 7-201 Ingrid. Provider: Svetlana MONIQUE, ry 6 700 Ingrid PO Box amenorrheaEncntr Medical Thomas L, 1522, for dietary service aide exam Center [facility] [place], (general) , [facility] HELEN, (routine) w 120, Center [id number], abnormal Fidel, [facility] 120, [place] findingsEncounter Fidel CERVANTES, tel: for [phone] [place], test, result , [place]. [id number]. positive tel: tel: [phone] Last [place] Apr-0 Thomas Referring In Womens 1-201 Ingrid. Provider: Svetlana MONIQUE, 5 700 Ingrid PO Box Medical Thomas L, 1522, Center [facility] Dr Priyank, [facility] [place], 120, Center [id number], Fidel, [facility] 120, [place] Fidel CERV[place]ES, tel: [phone] [place], , [place]. [id number]. tel: tel: [phone] Last [place] Dec- Thomas Referring In Womens 5-201 Ingrid. Provider: Svetlana MONIQUE, 4 700 Ingrid PO Box Medical Thomas L, 1522, Center [address], [facility] [place], 120, Center [id number], Fidel [facility] 120, [place] Fidel [place]ERV[place], tel:[phone] [place], , [place]. [id number]. tel: tel:[phone] Last [place] Oct-0 Thomas Referring In Womens 3-201 Ingrid. Provider: Svetlana MONIQUE, 2 700 Ingrid PO Box Medical Thomas L, 1522, Center [address], [facility], 120, [place] [id number], [facility], [place], Fidel, tel:[phone] [place], , . [id number]. tel: tel: [phone] Last [place] Jessica In Womens 0-201 Jana. Health [place], 2 700 PO [facility] 1522, [place] [address] Pri[address], [facility], 120, [id number], [place], [facility], tel: [phone] , [place]. tel: [phone] Family History Family Member Diagnosis Age At Onset Father Hypertension Paternal Grandmother Diabetes mellitus Maternal Grandfather Hypertension Maternal Grandmother Hypertension Paternal Grandmother Hypertension Paternal Grandfather Hypertension Mother Hypertension Immunizations Vaccine Date Status Comments Tdap completed Source: New Immunization Record Influenza, injectable, completed Source: New Immunization Record quadrivalent, preservative free, 3 yrs or older Payers Payer name Insurance type Covered constitution party ID Authorization([facility]) [facility] [id number] [facility] Aid [id number] [facility] [id number] [facility] [place] [id number] [facility] [id number] Social History Type Description Quantity Date Captured Alcohol Use Details No Caffeine Use Details Unknown Tobacco Use Status Unknown Smoking Status Never smoker Vital Signs Date / Height Weight BMI Pulse Blood Temperature Respiratory Body Head BMI Time: Rate Pressure Rate Surface Circumference percentile Area 198.00 33.9 118/80 lbs 8 mm[Hg] 10:52 kg/m AM eter (2) Chief Complaint And Reason For Visit Unknown Chief Complaint And Reason For Visit Reason For Referral Reason For Referral Unknown Plan Of Care Date Type Action Status Appointment Jon Son BOOKED Appointment AdelaidaJon jara BOOKED Appointment AdelaidaJon jara BOOKED Date Type Problem Goal Intervention Status Start [...]
[2017-02-18] MEDS ORDERED: D5LR 1,000 ML IV PRN (06:16)
[2017-02-18] MEDS ORDERED: OXYTOCIN DRIP 30 UNIT/500 ML ML IV PRN (06:16)
--- OUTSIDE RECORDS SUMMARY | 2017-02-18 06:16 | External Medical Summary | Continuity of Care Document ---
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 Encounter for test, result - positive Irregular Menses demise before 22 weeks with retention of michelle demise before 22 weeks with retention of michelle High Risk Preg, Elderly Multigravida Less than 8 weeks gestation of - demise before 22 weeks with retention of michelle Spotting Complicating , Antepartum 8 weeks gestation of - Supervision of elderly multigravida, - first trimester 12 weeks gestation of - Supervision of elderly multigravida, - second trimester Spotting complicating , - second trimester 16 weeks gestation of - Supervision of elderly multigravida, - second trimester Encounter for suprvsn of normal - , second trimester Supervision of elderly multigravida, - second trimester Encounter for suprvsn of normal - , second trimester 23 weeks gestation of - Supervision of elderly multigravida, - second trimester Encounter for suprvsn of normal - , second trimester 27 weeks gestation of - Threatened Threatened - Threatened Supervision of elderly multigravida, - third trimester Encounter for suprvsn of normal - , third trimester 30 weeks gestation of - Supervision of elderly multigravida, - third trimester Maternal care for excess growth, - third trimester, unsp 34 weeks gestation of - Amenorrhea, Secondary - Active Irregular Menses - [...] Referring In Womens elderly 3-201 Ingrid. Provider: Svetlana MONIQUE multigravicelia, 7 700 Ingrid PO Box third Medical Thomas L, 1522, [facility] [address] [place], r for suprvsn of Giancarlo Stanton, normal , 120, Center [id number], third [id number] [place], Giancarlo 120, [place] weeks gestation Fidel CERVANTES, tel:[phone] [place], , [place]. [id number]. tel: tel:[phone] Last Parra Supervision of Jan- Thomas Referring In Womens Ultrasound elderly 3-201 Ingrid. Provider: miguel Chewgravicelia, 7 700 Ingrid PO Box third Medical Thomas L, 1522, trimesterMaternal Center [address] [place], care for excess Giancarlo Stanton, growth, 120, Center [id number], third trimester, Parra Giancarlo 120, [place] unsp34 weeks Fidel CERVANTES, tel:[phone] gestation of [phone] [place], , [place]. [id number]. tel: tel:[phone] Last Parra Supervision of Thomas Referring In Womens elderly 0-201 Ingrid. Provider: miguel Chewgravicelia, 7 700 Ingrid PO Box third Medical Thomas L, 1522, trimesterMaternal Center 700 [place], care for excess Giancarlo Stanton, growth, 120, Center [id number], third trimester, Parra, Giancarlo 120, [place] unsp32 weeks Fidel CERVANTES, tel:[phone] gestation of [phone] [place], , [place]. [id number]. tel: tel:[phone] Last Parra Supervision of Thomas Referring In Womens elderly 6-201 Ingrid. Provider: miguel Chewgravicelia, 7 700 Ingrid PO Box third Medical Thomas L, 1522, [facility] 700 [place], berenice for suprvsn of Giancarlo Stanton, normal , 120, Center [id number], third [id number] Fidel Giancarlo 120, [place] weeks gestation Fidel CERVANTES, tel:[phone] [place], , [place]. [id number]. tel: tel:[phone] Last Parra Supervision of Thomas Referring In Womens elderly 6-201 Ingrid. Provider: Svetlana MONIQUE multigravida, 7 700 Ingrid PO Box second Medical Thomas L, 1522, trimesterEncounte Center 700 [place], for suprvsn of Giancarlo Stanton, normal , 120, Center [id number], second Fidel Giancarlo 120, US [id number] weeks Fidel CERVANTES, tel:+[phone] gestation of [phone] [place], , [place]. [id number]. tel: tel:[phone] Last Parra Supervision of Thomas Referring In Womens elderly 8-201 Ingrid. Provider: miguel Chewgravicelia, 7 700 Ingrid PO Box second Medical Thomas L, 1522, trimesterEncounte Center 700 [place], for suprvsn of Giancarlo Stanton, normal , 120, Center [id number], second Giancarlo Parra 120, US [id number] weeks Fidel CERVANTES, tel:+[phone] gestation of [phone] [place], , [place]. [id number]. tel: tel:[phone] Last Parra Supervision of Thomas Referring In Womens elderly - Ingrid. Provider: miguel Chewgravida, 7 700 Ingrid PO Box second Medical Thomas L, 1522, [id number] weeks Center 700 [place], gestation of Giancarlo Stanton, 120, Center [id number], Fidel Giancarlo 120, US Fidel CERVANTES, tel:[phone] [place], , [place]. [id number]. tel: tel:[phone] Last Parra Supervision of Thomas Referring In Womens Ultrasound elderly -201 Ingrid. Provider: Health PA, multigravida, 7 700 Ingrid PO Box second Medical Thomas L, 1522, trimesterEncounte Center [address] [place] [address], r for suprvsn of Giancarlo Stanton, normal , 120, Center , second trimester Parra, Giancarlo 120, [place] Fidel CERVANTES, tel:+ [phone] [place], , [place]. [id number]. tel: tel:[phone] Last Parra Supervision of Thomas Referring In Womens elderly 0-201 Ingrid. Provider: Health KAYDEN, multigravida, 7 700 Ingrid PO Box second Medical Thomas L, 1522, trimesterSpotting Center [address] [place], [place] [address], complicating Giancarlo Stanton, , second 120, Center [id number], [id number] weeks Parra, Giancarlo 120, [place] gestation of Fidel CERVANTES, tel:+ [phone] [place], , [place]. [id number]. tel: tel:[phone] Last Parra Supervision of Thomas Referring In Womens elderly 2-201 Ingrid. Provider: Svetlana MONIQUE, multigravida, 7 700 Ingrid PO Box first [email or web address] Medical Thomas L, 1522, weeks gestation Center [address] [place] [address], of Giancarlo Stanton, 120, Center [id number], [place], [facility] 120, [place] Fidel CERVANTES, tel:+ [phone] [place], , [place]. [id number]. tel: tel:[phone] Last Parra Supervision of Thomas Referring In Womens elderly 5-201 Ingrid. Provider: Health KAYDEN, multigravida, 7 700 Ingrid PO Box first Medical Thomas L, 1522, trimesterSpotting Center [address] [place], [place] [address], complicating Giancarlo Stanton, , first 120, Center [id number], trimester8 weeks Parra, Giancarlo 120, [place] gestation of Fidel CERVANTES, tel:[phone] [place], , [place]. [id number]. tel: tel:[phone] Associates [facility] Threatened Feb-2 Thomas Referring In Womens 4-201 Ingrid. Provider: Svetlana MONIQUE, 7 700 Ingrid PO Box Medical Thomas L, 1522, Center [facility] Dr Pri[address], [facility] [place], 120, [place] [id number], [place], [facility] 120, Fidel CERVANTES, tel:+ [phone] [place], , [place]. [id number]. tel: tel:+ [phone] [facility] [place] Irregular Menses Feb-2 Thomas In Womens 4-201 Ingrid. Svetlana MONIQUE, 7 700 PO Box Medical 15[address], [place] [address] Pri[address], [facility], 120, [id number], Par[place], [facility], tel:[phone] , [place]. tel: [phone] [facility] Encntr for f/u Nov-0 Thomas Referring In Womens exam aft trtmt 1-201 Ingrid. Provider: Svetlana MONIQUE, for cond oth than 6 700 Ingrid PO Box malig neoplm Medical Thomas L, 1522, Center [facility] Dr Priy[address], [facility] [place], 120, [place] [id number], Fidel [facility] 120, [facility], tel:[phone] [place], , [place]. [id number]. tel: tel: [phone] Associates [place] demise Sep-2 Thomas In Womens before 22 weeks 0-201 Ingrid. Health KAYDEN, with retention of 6 700 PO Box michelle Medical 1522, [place] [address] Pri[address], [facility] [place], 120, [id number], [place], [place], tel:[phone] , [place]. tel: [phone] [facility] demise Sep-1 Cardoza Referring In Womens before 22 weeks 3-201 Ju. Provider: Svetlana MONIQUE, with retention of 6 700 Ingrid PO Box deaMissed AB Medical Thomas L, 1522, Center [address], [facility] [place], 120, [place] [id number], [place], [facility] 120, [place] Fidel CERVANTES, tel:[phone] [place], , [place]. [id number]. tel: tel:+ [phone] Associates [facility] demise Sep-0 [place] Referring In Womens before 22 weeks 6-201 Apple. Provider: Svetlana MONIQUE, with retention of 6 700 Ingrid PO Box deaSpotting Medical Thomas L, 1522, Complicating Center [address] [place] [address], , , [facility], Antepartum8 weeks 120, [place] [id number], gestation of [place], [facility] 120, [place] Fidel CERVANTES, tel:[phone] [place], , [place]. [id number]. tel: tel:+ [phone] Last Parra High Risk Preg, Aug-2 Thomas Referring In Womens Elderly 2-201 Ingrid. Provider: Svetlana MONIQUE, MultigravidaLess 6 700 Ingrid PO Box than 8 weeks Medical Thomas L, 1522, gestation of Center [address] [place] [address], , [facility], 120, [place] [id number], [facility] 120, [place] Fidel CERVANTES, tel:[phone] [place], , [place]. [id number]. tel: tel:+ [phone] Last Parra Threatened Aug-2 Thomas Referring In Womens Ultrasound 2-201 Ingrid. Provider: Svetlana MONIQUE, 6 700 Ingrid PO Box Medical Thomas L, 1522, Center [facility] Dr Pri[address], [facility] [place], 120, [place] [id number], [place], [facility] 120, [place] Fidel CERVANTES, tel:[phone] [place], , [place]. [id number]. tel: tel:[phone] Last Parra Threatened Aug-2 Thomas In Womens 2-201 Ingrid. Health KAYDEN, 6 700 PO Box Medical 1522, Center Dr Pri[address], [facility] [place], 120, [id number], Par[place], HELEN, tel:[phone] , [place]. tel: [phone] Last Russ Thomas Referring In Womens amenorrheaSeconda 7-201 Ingrid. 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 [id number]. positive tel: tel:[phone] Last Parra Aug-0 Thomas Referring In Womens 1-201 Ingrid. Provider: Svetlana MONIQUE, 5 700 Ingrid PO Box Medical Thomas L, 1522, Center [facility] Dr Pri[address], [facility] [place], 120, Center [id number], F[place], [facility] 120, [place] Fidel CERVANTES, tel:+ [phone] [place], , [place]. [id number]. tel: tel:[phone] Last Parra Thomas Referring In Womens 5-201 Ingrid. Provider: Svetlana MONIQUE, 4 700 Ingrid PO Box Medical Thomas L, 1522, Center [facility] Dr Pri[address], [facility] [place], 120, Center [id number], F[place], [facility] 120, [place] Fidel CERVANTES, tel:[phone] [place], , [place]. [id number]. tel: tel:[phone] Last Parra Feb-0 Thomas Referring In Womens 3-201 Ingrid. Provider: Svetlana MONIQUE, 2 700 Ingrid PO Box Medical Thomas L, 1522, Center [facility] Dr Pri[address], [facility] [place], 120, Center [id number], [place], [facility] 120, [place] Fidel CERVANTES, tel:[phone] [place], , [place]. [id number]. tel: tel:[phone] Last Parra Suresh-3 Jessica In Womens 0-201 Jana. [facility], 2 [address] [place] [id number], [place] [address] [place], 120, [id number], [place], [place], tel:[phone] , [place]. tel: [phone] Family History Family Member Diagnosis Age At [...] Insurance type Covered alliance party ID Authorization(s) [employer] [place] [employer] - Medicaid [place] [id number] [facility] [id number] [facility] [id number] [facility] CI [id number] [employer] [place] [employer] - Medicaid [place] [id number] [facility] [id number] Social History Type Description Quantity Date Captured [...] Future Order: Radiology Order Ultrasound OB Follow-up (16818) Ordered Date Type Problem Goal Intervention Status [...]
--- OUTSIDE RECORDS SUMMARY | 2017-02-18 06:16 | External Medical Summary | Continuity of Care Document ---
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) - (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) w abnormal findings Encounter for test, result - positive Irregular Menses demise before 22 weeks with retention of michelle High Risk Preg, Elderly Multigravida Less than 8 weeks gestation of - demise before 22 weeks with retention of michelle Spotting Complicating , Antepartum 8 weeks gestation of - demise before 22 weeks with retention of michelle Supervision of elderly multigravida, - first trimester 12 weeks gestation of - Supervision of elderly multigravida, - second trimester Spotting complicating , - second trimester 16 weeks gestation of - Threatened Threatened - Threatened Supervision of elderly multigravida, - second trimester Encounter for suprvsn of normal - , second trimester Supervision of elderly multigravida, - second trimester Encounter for suprvsn of normal - , second trimester 23 weeks gestation of - Amenorrhea, Secondary - Active Irregular Menses - Active Active Active Procedures Procedure Date OB Visit No Charge Results Test Name Date and Time Measure Units Reference Range Abnormal Flag Comments Unknown Advance Directives Directive Yes / No Effective Date File Name Unknown Encounters Encounter Practice Location Reason(s) Diagnoses Date Provider Care Team Description For Visit Members [facility] Maternal care for Thomas Referring In Womens excess 0-201 Ingrid. Provider: Health PA, growth, third 7 700 Ingrid PO Box trimester, Medical Thomas L, 1522, unspSupervision Center 700 [place], of elderly Dr, [facility] Medical [place], multigravida, 120, Center Dr [id number], third [id number] Parra, Giancarlo 120, [place] weeks gestation Fidel CERVANTES, tel:[phone] [place], , [place]. [id number]. tel: tel:[phone] Last Parra Supervision of Thomas Referring In Womens elderly - Ingrid. Provider: Health KAYDEN multigravida, 7 700 Ingrid PO Box third Medical Thomas L, 1522, trimesterEncounte Center 700 [place], r for suprvsn of Giancarlo Stanton, normal , 120, Center [id number], third [id number] Parra, Giancarlo 120, [place] weeks gestation Fidel CERVANTES, tel:[phone] [place], , [place]. [id number]. tel: tel:[phone] Last Parra Supervision of Thomas Referring In Womens elderly - Ingrid. Provider: Svetlana MONIQUE multigravida, 7 700 Ingrid PO Box second Medical Thomas L, 1522, trimesterEncounte Center 700 [place], r for suprvsn of Giancarlo Stanton, normal , 120, Center [id number], second Fidel Giancarlo 120, [place] [id number] weeks Fdiel CERVANTES, tel:+[phone] gestation of [phone] [place], , [place]. [id number]. tel: tel:[phone] Last Parra Supervision of Thomas Referring In Womens elderly - Ingrid. Provider: Svetlana MONIQUE multigravida, 7 700 Ingrid PO Box second Medical Thomas L, 1522, trimesterEncounte Center 700 [place], r for suprvsn of Giancarlo Stanton, normal , 120, Center [id number], second Fidel Giancarlo 120, US [id number] weeks Fidel CERVANTES, tel:+[phone] gestation of [phone] [place], , [place]. [id number]. tel: tel:[phone] Last Parra Supervision of Thomas Referring In Womens elderly 1-201 Ingrid. Provider: Svetlana MONIQUE, multigravida, 7 700 Ingrid PO Box second Medical Thomas L, 1522, [id number] weeks Center [address] [place] [address], gestation of DrGiancarlo, 120, Center [id number], Parra, [facility] 120, [place] Fidel CERVANTES, tel:+ [phone] [place], , [place]. [id number]. tel: tel:[phone] Last Parra Supervision of Thomas Referring In Womens Ultrasound elderly 1-201 Ingrid. Provider: Svetlana MONIQUE, multigravida, 7 700 Ingrid PO Box second Medical Thomas L, 1522, trimesterEncounte Center [address] [place] [address], r for suprvsn of Giancarlo Stanton, normal , 120, Center [id number], second trimester Parra [facility] 120, [place] Fidel CERVANTES, tel:[phone] [place], , [place]. [id number]. tel: tel:[phone] Last Parra Supervision of Thomas Referring In Womens elderly 0-201 Ingrid. Provider: Svetlana MONIQUE, multigravida, 7 700 Ingrid PO Box second Medical Thomas L, 1522, trimesterSpotting Center [address] [place] [address], complicating Giancarlo Stanton, , second 120, Center [id number], weeks [facility] 120, [place] gestation of Fidel CERVANTES, tel:+ [phone] [place], , [place]. [id number]. tel: tel:[phone] Last Parra Supervision of Aug- Thomas Referring In Womens elderly 2-201 Ingrid. Provider: Svetlana MONIQUE, multigravida, 7 700 Ingrid PO Box first [id number] Medical Thomas L, 1522, weeks gestation Center [address] [place] [address], of Giancarlo Stanton, 120, Center [id number], Parra, [facility] 120, [place] Fidel CERVANTES, tel:[phone] [place], , [place]. [id number]. tel: tel: [phone] Last Parra Supervision of Mar-1 Thomas Referring In Womens elderly 5-201 Ingrid. Provider: Svetlana MONIQUE, multigravida, 7 700 Ingrid PO Box first Medical Thomas L, 1522, trimesterSpotting Center [facility], complicating , [facility], , first 120, Center [id number], trimester8 weeks [facility] 120, [place] gestation of [place], Fidel, tel:[phone] [place], , [place]. [id number]. tel: tel: [phone] Last Parra Threatened Feb-2 Thomas Referring In Womens 4-201 Ingrid. Provider: Svetlana MONIQUE, 7 700 Ingrid PO Box Medical Thomas L, 1522, Center [facility] Dr [place], [facility], 120, [place] [id number], [facility] 120, Fidel CERVANTES, tel:[phone] [place], , [place]. [id number]. tel: tel: [phone] Last Parra Irregular Menses Feb-2 Thomas In Womens 4-201 Ingrid. Svetlana MONIQUE, 7 700 PO Box Medical 1522, [place] [address] Pri[address], [facility], 120, [id number], Parra, HELEN, tel: [phone] , [place]. tel: [phone] Last Parra Encntr for f/u Nov-0 Thomas Referring In Womens exam aft trtmt -201 Ingrid. Provider: Svetlana MONIQUE, for cond oth than 6 700 Ingrid PO Box malig neoplm Medical Thomas L, 1522, Center [facility] Dr [address], [facility], 120, [place] [id number], [facility] 120, [place] Fidel CERVANTES, tel:[phone] [place], , [place]. [id number]. tel: tel: [phone] Last Parra demise Sep-2 Thomas In Womens before 22 weeks 0-201 Ingrid. Svetlana MONIQUE, with retention of 6 700 PO Box michelle Medical 1522, Center Dr Pri[address], [facility] [place], 120, [id number], [place], [place], tel:[phone] , [place]. tel: [phone] [facility] [place] Missed ABFetal Sep-1 Cardoza Referring In Womens demise before 22 3-201 Ju. Provider: Svetlana MONIQUE, weeks with 6 700 Ingrid PO Box retention of michelle [place], 1522, Center [facility] Dr [address], [facility] [place], 120, [place] [id number], [place], [facility] 120, [place] Fidel CERVANTES, tel:[phone] [place], , [place]. [id number]. tel: tel: [phone] Associates [place] demise Sep-0 [place] Referring In Womens before 22 weeks 6-201 Apple. Provider: Svetlana MONIQUE, with retention of 6 700 Ingrid PO Box deaSpotting Moon Oquendo, 1522, Complicating Center [facility] [place], , , [facility], Antepartum8 weeks 120, [place] , gestation of [place], [facility] 120, [place] Fidel CERVANTES, tel:[phone] [place], , [place]. [id number]. tel: tel: [phone] Associates [place] High Risk Preg, Aug-2 Thomas Referring In Womens Elderly 2-201 Ingrid. Provider: Svetlana MONIQUE, MultigravidaLess 6 700 Ingrid PO Box than 8 weeks Medical Thomas L, 1522, gestation of Center [facility] [place], , [facility] [place], 120, Center [id number], [place], [facility] 120, [place] Fidel CERVANTES, tel:[phone] [place], , [place]. [id number]. tel: tel:[phone] [facility] [place] Threatened Aug-2 Thomas Referring In Womens Ultrasound 2-201 Ingrid. Provider: Svetlana MONIQUE, 6 700 Ingrid PO Box Moon [place], 1522, Center [facility] [address], [facility] [place], 120, Center [id number], [place] [facility] 120, [place] Fidel CERVANTES, tel:[phone] [place], , [place]. [id number]. tel: tel:[phone] Last [place] Threatened Aug-2 Thomas In Womens 2-201 Ingrid. Svetlana MONIQUE, 6 700 PO Box Medical 1522, Center Dr Pri[address], [facility] [place], 120, [id number], [place], [place], tel: [phone] , [place]. tel: [phone] Last Parra Secondary Dec- Thomas Referring In Womens amenorrheaSeconda 7-201 Ingrid. Provider: Svetlana MONIQUE, ry 6 700 Ingrid PO Box amenorrheaEncntr Medical Thomas L, 1522, for director of corporate real estate exam Center [facility] [place], (general) , [facility], (routine) w 120, Center [id number], abnormal Fidel [facility] 120, [place] findingsEncounter Fidel CERVANTES, tel:2 for [place], test, result , [place]. [id number]. positive tel: tel:[phone] Last Parra Aug-0 Thomas Referring In Womens 1-201 Ingrid. Provider: Svetlana MONIQUE, 5 700 Ingrid PO Box Medical Thomas L, 1522, Center [facility] Dr [address], [facility] [place], 120, Center [id number], F[place] [facility] 120, [place] Fidel CERVANTES, tel:[phone] [place], , [place]. [id number]. tel: tel:[phone] Last Parra Apr- Thomas Referring In Womens 5-201 Ingrid. Provider: Svetlana MONIQUE, 4 700 Ingrid PO Box Medical Thomas L, 1522, Center [facility] Dr Pri[address], [facility] [place], 120, Center [id number], F[place] [facility] 120, [place] Fidel CERVANTES, tel:[phone] [place], , [place]. [id number]. tel: tel:[phone] Last Parra Thomas Referring In Womens 3-201 Ingrid. Provider: Health PA, 2 700 Ingrid PO Box Medical Thomas L, 1522, Center [address], [facility], 120, [place] [id number], [facility] 120, HELEN, [place], tel:+ [phone] [place], , [place]. [id number]. tel: tel:+ [phone] Last Parra Jessica In Womens 0-201 Jana. Health PA, 2 700 PO Box Medical 1522, [place] [address] Pri[address], [facility] [place], 120, [id number], Par[place], [facility] [place], tel: [phone] , [place]. tel: [phone] Family History Family Member Diagnosis Age At Onset Father Hypertension Paternal Grandmother Diabetes mellitus Maternal Grandfather Hypertension Maternal Grandmother Hypertension Paternal Grandmother Hypertension Paternal Grandfather Hypertension Mother Hypertension Immunizations Vaccine Date Status Comments Tdap completed Source: New Immunization Record Influenza, injectable, completed Source: New Immunization Record quadrivalent, preservative free, 3 yrs or older Payers Payer name Insurance type Covered republican ID Authorization(s) [facility] Medicaid [id number] [facility] [place] [id number] [facility] [id number] [facility] CI [id number] [facility] CI [id number] Social History Type Description Quantity Date Captured [...] Of Care Date Type Action Status Appointment AdelaidaJon BOOKED Appointment AdelaidaJon BOOKED Appointment AdelaidaJon jara BOOKED Date Type [...]
--- OUTSIDE RECORDS SUMMARY | 2017-02-18 06:16 | External Medical Summary | Continuity of Care Document ---
:1980 Author Organization [facility] Allergies Active Description Code Type Severity Reaction Onset Reported/ Identified Relationship Clinical to Patient Status Yes No Known 80126 3 N/A N/A Drug 0 Allergies Medications Medication Packaging Start Stop Route Dosage Sig Date Date Unspecified 12/17/19 MUPIROCIN 5 16 Add Betamethasone ointment 0.1% (15gms) to which is added Nystatin powder to a concentration of 2% Nystatin. Apply sparingly after each feeding. Do not wash or wipe off. Package 12/17/19 SPRINTEC 5 16 take 1 tablet by oral route every day Tablet 03/21/20 CIPROFLOXACIN 6 16 take 1 tablet HCL by ORAL route every 12 hours for 7 days Problems Date Dx Attending Type Code Diagnosis Diagnosed By Coded 01/27/2016 Ingrid Guzman O02.1 demise before L 22 weeks with retention of michelle 09/16/2016 Ingrid Guzman O09.521 Supervision of L elderly multigravida, first trimester 09/16/2016 Ingrid Guzman O26.851 Spotting L complicating , first trimester 09/16/2016 Ingrid Guzman Z3A.08 8 weeks gestation L of 09/16/2016 Ingrid Guzman O09.521 Supervision of L elderly multigravida, first trimester 09/16/2016 Ingrid Guzman O26.851 Spotting L complicating , first trimester 09/16/2016 Ingrid Guzman Z3A.08 8 weeks gestation L of 09/16/2016 Ingrid Guzman O09.521 Supervision of L elderly multigravida, first trimester 09/16/2016 Ingrid Guzman O26.851 Spotting L complicating , first trimester 09/16/2016 Ingrid Guzman Z3A.08 8 weeks gestation L of 10/06/2016 Ingrid Guzman O09.522 Supervision of L elderly multigravida, second trimester 10/06/2016 Ingrid Guzman Z34.82 Encounter for L suprvsn of normal , second trimester 11/02/2016 Ingrid Guzman O09.522 Supervision of L elderly multigravida, second trimester 11/02/2016 Ingrid Guzman Z34.82 Encounter for L suprvsn of normal , second trimester 11/02/2016 Ingrid Guzman O09.522 Supervision of L elderly multigravida, second trimester 11/02/2016 Ingrid Guzman Z34.82 Encounter for L suprvsn of normal , second trimester 11/02/2016 Ingrid Guzman O09.522 Supervision of L elderly multigravida, second trimester 11/02/2016 Ingrid Guzman Z34.82 Encounter for L suprvsn of normal , second trimester 11/02/2016 Ingrid Guzman O09.522 Supervision of L elderly multigravida, second trimester 11/02/2016 Ingrid Guzman Z34.82 Encounter for L suprvsn of normal , second trimester 11/02/2016 Ingrid Guzman O09.522 Supervision of L elderly multigravida, second trimester 11/02/2016 Ingrid Guzman Z34.82 Encounter for L suprvsn of normal , second trimester 11/02/2016 Ingrid Guzman O09.522 Supervision of L elderly multigravida, second trimester 11/02/2016 Ingrid Guzman Z34.82 Encounter for L suprvsn of normal , second trimester 11/02/2016 Ingrid Guzman O09.522 Supervision of L elderly multigravida, second trimester 11/02/2016 Ingrid Guzman Z3A.19 19 weeks gestation L of 11/02/2016 Ingrid Guzman O09.522 Supervision of L elderly multigravida, second trimester 11/02/2016 Ingrid Guzman3A.19 19 weeks gestation L of 01/19/2017 Ingrid Guzman O09.523 Supervision of Jere elderly multigravida, third trimester 01/19/2017 Ingrid Guzman O36.63x0 Maternal care for L excess growth, third trimester, unsp 01/19/2017 Ingrid Guzman Z3A.34 34 weeks gestation L of Procedures Code Description Performed By Performed On 01/27/2016 35463 Treat missed , 1st trimest 07/21/2016 07703 Venpnctr fngr/heel/ear stick routne OB 07/21/2016 05698 Visit No Charge OB 07/21/2016 52981 Panel With An HIV 07/21/2016 33041 Cult, bactr, porsche colonycnt, urine 07/21/2016 39009 Cult, bactr, ident isolate, urine OB 10/06/2016 76237 US, DETAILED, SNGL FETUS OB 10/06/2016 76047 Visit No Charge 01/19/2017 55323 Ultrasnd preg uterus, flwup/repeat Results Encounters ACCT No. Visit Discharge Status Pt. Type Provider Facility Loc./Unit Complaint Date/Time [id number] 01/19/2017 01/19/2017 [facility] Out[facility], 08:45:00 23:59:59 Ingrid L [id number] 01/19/2017 01/19/2017 [facility] Outpatient [facility], 08:15:00 23:59:59 Ingrid L [id number] 01/05/2017 01/05/2017 CLS Outpatient [facility], 10:15:00 23:59:59 Ingrid L [id number] 12/22/2016 12/22/2016 CLS Outpatient [facility], 10:15:00 23:59:59 Ingrid L [id number] 12/01/2016 12/01/2016 CLS Outpatient Thomas, 10:30:00 23:59:59 Ingrid L [id number] 11/03/2016 11/03/2016 CLS Outpatient [facility], 10:45:00 23:59:59 Ingrid L [id number] 10/06/2016 10/06/2016 CLS Outpatient Thomas, 09:00:00 23:59:59 Ingrid L [id number] 10/06/2016 10/06/2016 CLS Outpatient Thomas, 08:15:00 23:59:59 Ingrid L [id number] 09/15/2016 09/15/2016 CLS Outpatient Thomas, 10:45:00 23:59:59 Ingrid L [id number] 09/09/2016 09/09/2016 CLS Outpatient Thomas, 12:56:00 23:59:59 Ingrid L [id number] 08/18/2016 08/18/2016 CLS Outpatient Thomas, 11:15:00 23:59:59 Ingrid L [id number] 07/21/2016 07/21/2016 CLS Outpatient Thomas, 14:15:00 23:59:59 Ingrid L [id number] 07/02/2016 07/02/2016 CLS Outpatient Thomas, 13:10:00 23:59:59 Ingrid L [id number] 07/02/2016 07/02/2016 CLS Outpatient Thomas, 08:32:00 23:59:59 Ingrid L [id number] 05/17/2016 05/17/2016 CLS Outpatient [facility], 11:36:00 23:59:59 Ju Lam [id number] 03/09/2016 03/09/2016 CLS Outpatient Thomas, 10:30:00 23:59:59 Ingrid L [id number] 01/27/2016 01/27/2016 CLS Outpatient Thomas, 11:59:00 23:59:59 Ingrid L [id number] 01/20/2016 01/20/2016 CLS Outpatient [facility], 14:30:00 23:59:59 Ju Lam [id number] 01/13/2016 01/13/2016 CLS Outpatient [place], 13:30:00 23:59:59 Apple Noriega [id number] 01/13/2016 01/13/2016 CLS Outpatient [facility], 09:03:00 23:59:59 Ingrid L [id number] 12/29/2015 12/29/2015 CLS Outpatient Thomas, 11:35:00 23:59:59 Ingrid L [id number] 12/29/2015 12/29/2015 CLS Outpatient Thomas, 11:15:00 23:59:59 Ingrid L [id number] 12/29/2015 12/29/2015 CLS Outpatient Thomas, 09:09:00 23:59:59 Ingrid L [id number] 12/25/2015 12/25/2015 CLS Outpatient Thomas, 08:32:00 23:59:59 Ingrid L [id number] 12/24/2015 12/24/2015 CLS Outpatient Thomas, 15:00:00 23:59:59 Ingrid L [id number] 04/22/2015 04/22/2015 CLS Outpatient Thomas, 10:53:00 23:59:59 Ingrid L [id number] 01/07/2015 01/07/2015 CLS Outpatient Thomas, 09:39:00 23:59:59 Ingrid L [id number] 02/10/2017 Document 10:30:00 Registration [id number] 2017 Document 09:45:00 Registration [id number] 03/15/2016 Document 09:08:15 Registration [id number] 12/24/2015 Document 15:07:17 Registration
[2017-02-18 06:25] VITALS: BMI 36.3
[2017-02-18] MEDS: LR 1,000 ML IV PRN ×2 (06:38→11:46)
--- NOTE | 2017-02-18 09:02 | Anesthesia Preoperative Report ---
Anesthesia Epidural/Spinal Rec - Date and Time Date: 02/18/17 Procedure: Labor Epidural Plan: Epidural - Vital Signs Vital Signs: Temperature 98.1 F 02/18/17 07:34 Pulse Rate 86 02/18/17 07:34 Respiratory Rate 18 02/18/17 07:34 Blood Pressure 123/77 02/18/17 07:34 Pulse Oximetry 96 02/18/17 07:34 /Para: P:2 - Medictaions & Allergies Inpatient Medications: Current Medications Acetaminophen (Tylenol) 500 - 1,000 mg PO Q4H PRN PRN Reason: Pain Al Hydroxide/Mg Hydroxide (Maalox Plus) 30 ml PO Q3H PRN PRN Reason: Indigestion Calcium Carbonate (Tums) 500 - 1,000 mg PO Q2H PRN PRN Reason: Indigestion Carboprost Tromethamine (Hemabate) 250 mcg IM O PRN PRN Reason: .Downtime Lactated Ringer's (Lactated Ringers) 1,000 mls @ 999 mls/hr IV .Q1H1M PRN Last Admin: 02/18/17 06:38 Dose: 999 mls/hr Dextrose/Lactated Ringer's (Dextrose 5%-Lactated Ringers) 1,000 mls @ 125 mls/ hr IV .Q8H PRN PRN Reason: Labor Last Admin: 02/18/17 06:46 Dose: 125 mls/hr Oxytocin (Pitocin Drip) 30 unit in 500 mls @ 2 mls/hr IV .Q24H PRN; Protocol PRN Reason: Induction/Augmentation Last Admin: 02/18/17 06:44 Dose: 2 mls/hr Lidocaine HCl (Xylocaine-Mpf 1% Vial) 0.2 mg ID O PRN PRN Reason: IV Start Methylergonovine Maleate (Methergine) 0.2 mg IM O PRN Misoprostol (Cytotec) 800 mcg IL ONCE PRN Allergies/Adverse Reactions: Allergies Allergy/AdvReac Type Severity Reaction Status Date / Time No Known Drug Allergies Allergy Mild Verified 12/27/11 14:45 - Home Medications Home Medications: Home Medications Medication Instructions Recorded Confirmed Type Cetirizine HCl [Zyrtec] 1 tab PO DAILY #0 tab 01/26/16 History Fluticasone Propionate [Flonase 2 spray [place] DAILY #0 01/26/16 History Allergy Relief] - Medical History Respiratory: DENIES: Asthma, Sleep Apnea Cardiovascular: DENIES: Arrhythmia, Hypertension Gastrointestional: DENIES: Gastroesophageal Reflux Disease Neuro/Musculoskeletal: Reports: Seizures (~2002- cerebral hemangioma removed, no sz activity since procedure) Other History: DENIES: Anesthesia Reactions - Surgical History Anesthesia Reactions: None Hx Family Anesthesia Reaction: No History of Motion Sickness: No - Social History Substance Use Type: does not use Alcohol Intake Frequency: does not drink - Pertinent Findings Lab Data: CBC and BMP 02/18/17 06:34 EKG Rhythm: Normal Sinus Rhythm - Physical Exam Respiratory Exam: lungs clear, bilateral breath sounds equal Cardiovascular Exam: regular rate and rhythm - Airway Assessment Mallampati Score: II TMD: 3 Fingerbreadths Neck Extension: good Overall Assessment: no airway concerns - ASA ASA Score: 2 - Discussion Discussion: Discussed risks/options/alternatives of anesthesia and questions answered. Patient consents. Nursing pain assessment noted. Anesthesia Discussion: spouse Attestation Statement: Prior to the delivery of any anesthetic medication, I examined the patient, developed the plan, obtained the patient's consent and discussed the risk and benefits of the procedure with the patient/guardian.
[2017-02-18] MEDS ORDERED: ROPIVACAINE 1% 10MG/ML INJ 200 MG, SUFentanil 50 MCG in NS 100 ML EPI PRN (12:04)
[2017-02-18] MEDS ORDERED: ONDANSETRON 4 MG/2 ML INJECTION IVP PRN (12:04)
[2017-02-18] MEDS ORDERED: NALOXONE 0.4 MG/ML INJECTION IVP PRN (12:04)
[2017-02-18] MEDS ORDERED: DiphenhydrAMINE 50 MG/ML INJECTION IVP PRN (12:04)
--- NOTE | 2017-02-18 15:44 | Labor and Delivery Note ---
DATE OF DELIVERY 02/18/2017 Ms. Son progressed well in first stage of labor. She began to push with excellent effort at complete and +2 presentation. She pushed for two contractions, delivering the head in the OA presentation. Baby was a very snug fit so she continued to push. There was a bit of shoulder dystocia relieved by Vincent maneuver and rotation of the anterior shoulder to posterior. The baby then delivered completely and was bulb suctioned and set on mother's abdomen. After a little over two minutes the cord was doubly clamped and it was cut by the baby's father, Chung. This is a liveborn male with Apgars of 8/8/9, weighing 8 pounds 6 ounces. After a few moments the placenta delivered spontaneously intact. It had a short cord although not abnormal and a normal configuration of the placenta. There was a superficial midline laceration that was hemostatic and not repaired. Total blood loss was approximately 300 mL. At the time of this dictation mother and baby are doing well. KAYLIE
[2017-02-18] MEDS ORDERED: OXYTOCIN DRIP 30 UNIT/500 ML ML IV SCH (16:24)
[2017-02-18] MEDS ORDERED: SALINE FLUSH 10ml SYRINGE IV PRN (16:24)
[2017-02-18] MEDS ORDERED: DiphenhydrAMINE 25 MG CAPSULE PO PRN (16:24)
[2017-02-18] MEDS ORDERED: HYDROCORTISONE 2.5% CREAM 30gm RECTALLY PRN (16:24)
[2017-02-18] MEDS ORDERED: HYDROCODONE/APAP 5mg/325mg TABLET PO PRN (16:24)
[2017-02-18] MEDS: IBUPROFEN 800 MG TABLET PO SCH (16:30)
[2017-02-19] MEDS: IBUPROFEN 800 MG TABLET PO SCH ×3 (00:40→16:32)
--- NOTE | 2017-02-19 08:03 | OB/GYN Progress Note ---
OB-PP Progress Note - General PPD1 Maternal Group B Strep: Negative Maternal blood type: O+ Maternal Rubella Status: Immune - Subjective Date: 02/19/17 Lochia: Minimal Pain: contolled Voiding: voiding Nausea or Vomiting Present: No - Objective Vital Signs: Last Vital Signs Temp 97.9 F 02/18/17 22:56 Pulse 70 02/18/17 22:56 Resp 14 02/18/17 22:56 BP 126/79 02/18/17 22:56 Pulse Ox 96 02/18/17 07:34 Urine Output: good General: alert and oriented Abdomen: fundus firm, non-tender Extremities: non-tender Edema: none - Assessment Assessment: SP, - Plan Plan: routine care
--- NOTE | 2017-02-19 08:05 | Discharge Instructions ---
Discharge Plan - Med Rec/Dispo Prescriptions: New Hydrocodone/APAP 5/325 [[place] 5/325] 1 - 2 tab PO Q4H PRN #20 tab PRN Reason: Pain Ibuprofen [Motrin] 800 mg PO Q8H #30 tab Docusate Calcium [Surfak] 240 mg PO DAILY #30 cap Continue Cetirizine HCl [Zyrtec] 1 tab PO DAILY #0 tab Fluticasone Propionate [Flonase Allergy Relief] 2 spray [place] DAILY #0 Pnv95/Ferrous Fumarate/FA [ Tablet] 1 tab PO DAILY #90 tab Hydrocodone/Acetaminophen ([place] 5-325 Tablet) 1 - 2 tab PO Q4H PRN #20 tab PRN Reason: PAIN
[2017-02-19] MEDS ORDERED: DOCUSATE CALCIUM 240 MG CAPSULE PO SCH (09:00)
[2017-02-19] MEDS ORDERED: PRENATAL VITAMIN TABLET PO SCH (09:00)
--- NOTE | 2017-02-19 10:12 | Anesthesia Postoperative Note ---
- Date and Time Date: 02/19/17 Time: 10:12 - Status Patient Participated in Evaluation: Patient Participated in Person Vital Signs: Temperature 98.4 F 02/19/17 06:15 Pulse Rate 62 02/19/17 06:15 Respiratory Rate 16 02/19/17 06:15 Blood Pressure 127/83 02/19/17 06:15 Pulse Oximetry 96 02/19/17 06:15 Respiratory Function: Airway Patent Cardiovascular Function: Regular Pulse EKG: Sinus Rhythm Mental Status: Alert and Oriented Hydration: Taking PO Fluids Complications During Recover: None Apparent Post Anesthesia Care Notes: no complications from epidural - Follow-Up Instructions Instructions: Per Surgeon
[2017-02-19 14:46] VITALS: BP 128/84; PULSE 73; RESP 19; TEMP 98.1; O2SAT 97
== END 2017-02-19 20:28 | disposition home or self-care (01) | DRG 775 ==
LOC: MC 06:10
PROVIDERS: ADMIT Obstetrics & Gynecology; ATTEND Obstetrics & Gynecology